=== PATIENT | male | born 1985 ===

== ENCOUNTER 2023-11-03 10:26 | Outpatient (AMB) | payer OTHER, SELFPAY ==
--- NOTE | 2023-11-03 10:34 | A.OFFVIS_ITS ---
Vital Signs 11/03/23 10:35 Height 5 ft 7 in Weight 236 lb 15.951 oz BMI 37.1 BP 104/72 Blood Pressure Location Lt brachial Position Sitting Pulse 97 Pulse Source Pulse Oximeter Pulse Oximetry (%) 96 Oxygen Delivery Method Room Air Intake Visit Reasons: sleep apnea Intake Note: pt is here as a new patient for follow up of sleep study and he is tired throughout the day, snores very loud, gasping and choking Oyster Opener Required: No Allergies No Known Allergies [No Known Allergies*] Allergy (Unverified 11/03/23 10:55) Medication List - Last Reconciled 11/03/23 by Naheed Hardy MD melatonin 5 mg PO BEDTIME PRN prazosin 5 mg PO BEDTIME quetiapine (Seroquel) 300 mg PO BEDTIME Do you need a note to return to daycare/school/sports/work: No HPI HPI sleep apnea: Details: THIS 37 YEARS OLD GENTLEMAN, IS BEING SEEN FOR THE 1ST TIME FOR MANAGEMENT OF HIS SLEEP APNEA. HE IS A CASE OF SEVERE OBESITY, WEIGHING ABOUT 40 KG/M. NOW LOST SOME WEIGHT IN THE PAST 10 WEEKS. LIVES IN A [facility] HOUSE IN THE RECOVERY PROGRAM , BECAUSE OF HIS PREVIOUS PROBLEM OF BEHAVIOR DISORDER. HE IS FROM HIS WITH 2 CHILDREN. IN THE [facility] HOUSE HE HAS BEEN TOLD THAT HE SNORES VERY HEAVY, AND HE CAN NOT HAVE ANY OTHER ROOMMATES SLEEP IN THE SAME ROOM. HE WAKES UP FREQUENTLY. HE HAS UN- REFRESHING SLEEP, AND FEELS TIRED/SLEEPY DURING THE DAYTIME. HE DENIES ANY OTHER PHYSICAL AILMENTS EXCEPT FOR HIS PSYCHIATRIC PROBLEM, FOR WHICH HE TAKES MEDS SHOWN IN THE MED LIST. HE CLAIMS THAT IT IS DUE TO HIS MEDS THAT HE HAD PUT ON LOT OF WEIGHT. HE UNDERWENT A HOME-BASED SLEEP STUDY ABOUT 2 MONTHS AGO, ORDERED BY SLEEP MEDICINE SERVICES, THE STUDY WAS GROSSLY ABNORMAL SHOWING A RATHER SEVERE DEGREE OF OBSTRUCTIVE SLEEP APNEA. WITH NUMBER OF O2 DESATURATIONS AND O2 SARAI 66%. O2 SAT WAS BELOW 88% FOR 17 MINUTES. PATIENT HAS BEEN SCHEDULED FOR AN IN-LAB STUDY FOR CPAP TITRATION. HOWEVER HE HAD REQUESTED AN URGENT VISIT TO OUR OFFICE FOR THE MANAGEMENT OF SLEEP APNEA. HE IS NOT ABLE TO SLEEP AT NIGHT. HE COMES WITH AN URGENT REQUEST THAT WE SHOULD PUT HIM ON A CPAP THERAPY. [facility] Medical History (Updated 11/03/23 @ 11:16 by Naheed Hardy MD) Nocturnal hypoxemia GIGI (obstructive sleep apnea) Obesity (BMI 35.0-39.9 without comorbidity) Social History Patient Tobacco Use Status: Current everyday Tobacco user Cigarette Packs Per Day: 0.5 Cigarettes Per Day: 3 Review of Systems Const All systems reviewed & are unremarkable except as noted in HPI and below Reports snoring (VERY LOUD ) Eyes Reports no additional complaints ENT Reports no additional complaints Card Denies chest pain at rest, Denies syncope, Denies irregular heart rhythm and Denies leg edema Resp Reports snoring (VERY LOUD ) and Denies wheezing GI Reports no additional complaints Reports no additional complaints Musc Reports no additional complaints Skin/Breast Reports system reviewed and no additional complaints, except as documented Neuro Reports no additional complaints and Denies syncope Psych Reports as per HPI Endo Reports no additional complaints Matthew/Lymph Reports no additional complaints Aller/Immun Denies wheezing Physical Exam Vital Signs: Last Vital Signs Pulse 97 11/03/23 10:35 BP 104/72 11/03/23 10:35 Pulse Ox 96 11/03/23 10:35 Oxygen Delivery Method Room Air 11/03/23 10:35 BMI result Body Mass Index 37.1 Const General: healthy appearing (EXCEPT FOR BEING OVERWEIGHT), comfortable, no acute distress, alert and awake Orientation/consciousness: patient oriented x3 HEENT Head: Yes normal to inspection General nose exam: No nasal polyps present and No nasal discharge present Face and sinus: Yes sinuses nontender Mouth: oropharynx abnormals (TONGUE IS CONVEX, OROPHARYNX MODERATELY CROWDED, MALLAMPATI CLASS 3) Throat: Yes posterior oropharynx normal Eyes General: appearance normal, both eyes and all related structures Neck Neck: Yes normal visual inspection, Yes no lymphadenopathy, Yes trachea midline, Yes no JVD and Yes other (NECK CIRCUMFERENCE 17 IN) Thyroid: Thyroid normal Chest Chest palpation & inspection: normal inspection of the chest, normal palpation of entire chest wall and no tenderness Resp Effort & Inspection: normal respiratory effort Auscultation: clear to auscultation bilaterally, no crackles and no wheezes Cardio Palpation: normal PMI Rate: regular rate Rhythm: regular rhythm Heart sounds: no gallops and no murmurs Peripheral pulses: Peripheral pulses 2+ throughout GI Palpation (GI): Soft to palpation, nontender, No hepatosplenomegaly present and no masses Auscultation: normal bowel sounds Back/Spine/Pelvis Thoracic/Lumbar Spine: thoracic and lumbar spine normal to inspection Skin General skin exam: no rashes or lesions noted Neuro General: patient oriented x3 and no focal motor deficits Cranial nerves: Yes CN's II-XII intact bilaterally Extrem General: Yes normal to inspection, Yes no clubbing, cyanosis or edema and Yes no calf tenderness Psych Appearance: grossly normal and well kempt Speech and movement: Normal speech and movement present Results Reviewed Results Reviewed: HOME-BASED SLEEP STUDY PERFORMED ON 08/1923 IS REVIEWED. TOTAL SLEEP TIME AHI 26, MUCH WORSE IN SUPINE POSITION SUPINE AHI 35. O2 SARAI 66 AND O2 SAT BELOW 88% FOR 1 HOUR 16 MINUTES Assessment & Plan Assessment & Plan (1) Obesity (BMI 35.0-39.9 without comorbidity): Comment: HERE GROSSLY OVERWEIGHT,. HE SAY IS IT IS DUE TO HIS PSYCH MEDS WHICH IS POSSIBLE. CURRENTLY HE IS TRYING TO CONTROL HIS DIET AND SAY IS HE IS STARTING TO LOSE WEIGHT SLOWLY. Code(s): E66.9 - Obesity, unspecified Category: Medical Plan: DISCUSSED WITH HIM ABOUT THE WEIGHT ISSUE. HE NEEDS TO CUT DOWN THE CALORIES INTAKE, HE NEEDS TO START WALKING AROUND ON A DAILY BASIS. (2) GIGI (obstructive sleep apnea): Comment: HE DOES HAVE RELATIVELY SEVERE OBSTRUCTIVE SLEEP APNEA WITH NOCTURNAL HYPOXEMIA. EXPLAINED TO HIM THE FINDINGS OF HIS SLEEP STUDY HE UNDERSTANDS WELL. HE CLAIMS TO BE VERY SYMPTOMATIC AND WANTS TO BE STARTED ON THERAPY SOON POSSIBLE. Code(s): G47.33 - Obstructive sleep apnea (adult) (pediatric) Category: Medical Plan: BECAUSE OF THE URGENCY TO START HIM ON DEFINITE IT TREATMENT, I WOULD GO AHEAD AND ORDER CPAP THERAPY WITH AUTO PAP MODE AND PRESSURE SETTING OF 6-20 CM, WITH A FULLFACE MASK. ONCE HE STARTS USING THE CPAP REGULARLY WILL CHECK HIS O2 SAT AT NIGHT BY OXIMETRY RECORDING., AND IF IT IS STILL LOW THEN HE WILL BE STARTED ON O2 SUPPLEMENTATION. MOST LIKELY HE IS GOING TO HEAL MUCH BETTER AND NOCTURNAL HYPOXEMIA SHOULD BE WELL CONTROLLED WITH THE USE OF CPAP. BECAUSE OF HIS PSYCH PROBLEMS AND LIVING IN [facility], HE NEEDS A VERY CLOSE FOLLOW-UP FOR MONITORING HIS COMPLIANCE AND BENEFITS. I WOULD SEE HIM BACK IN 6 WEEKS. WE HAVE MADE SURE TO GIVE HIM OUR TELEPHONE NUMBER AND WE HAVE ALSO GOTTEN HIS CELLPHONE TO BE ABLE TO CONTACT HIM FOR CONTINUOUS MONITORING. (3) Nocturnal hypoxemia: Comment: NOTED ABOVE UNDER GIGI HE DOES HAVE NOCTURNAL HYPOXEMIA. Code(s): G47.34 - Idiopathic sleep related nonobstructive alveolar hypoventilation Category: Medical Plan: IT IS HOPED THAT WITH THE USE OF CPAP NOCTURNAL HYPOXEMIA WILL RESOLVE COMPLETELY, AND NOTED ABOVE WE WILL DO AN OXIMETRY RECORDING AT NIGHT WHEN HE IS USING CPAP REGULARLY. Coding Level of Care Code Tele New Pt Level 4 (39687) Diagnoses Obesity (BMI 35.0-39.9 without comorbidity) E66.9 GIGI (obstructive sleep apnea) G47.33 Nocturnal hypoxemia G47.34
[2023-11-03 10:35] VITALS: BP 104/72; PULSE 97; O2SAT 96; BMI 37.1
== END 2023-11-03 10:58 | disposition home or self-care (01) ==
PROVIDERS: PCP Student in an Organized Health Care Education/Training Program; Visit Provider Internal Medicine
DX: E66.9 Obesity, unspecified (principal); G47.33 Obstructive sleep apnea (adult) (pediatric); G47.34 Idiopathic sleep related nonobstructive alveolar hypoventilation
CPT/HCPCS: 99204

== ENCOUNTER → 2023-11-03 10:26 | Outpatient (BNVA) | payer OTHER, SELFPAY | PROVIDERS: PCP Student in an Organized Health Care Education/Training Program; Visit Provider Internal Medicine ==

== ENCOUNTER 2025-02-28 20:02 | Emergency (ER) | payer SELFPAY ==
[2025-02-28 20:16] VITALS: BP 142/82; PULSE 102; O2SAT 99
--- NOTE | 2025-02-28 20:19 | ECG_ITS ---
Test Reason : n/v Blood Pressure : */* mmHG Vent. Rate : 66 BPM Atrial Rate : 66 BPM P-R Int : 172 ms QRS Dur : 104 ms QT Int : 398 ms P-R-T Axes : 32 7 6 degrees QTcB Int : 417 ms Normal sinus rhythm Normal ECG When compared with ECG of 02-Jan-2015 11:33, No significant change was found Referred By: Addie Pierce Electronically Signed By: ZEINA REN MD
--- NOTE | 2025-02-28 20:20 | ED_ITS ---
HPI - Abdominal Pain General Chief Complaint: Nausea/Vomiting/Diarrhea Stated Complaint: VOMITING DIZZY Time Seen by Provider: 02/28/25 20:14 History of Present Illness ED Provider: Addie Pierce NP HPI narrative: 39-year old male history of nocturnal hypoxemia, GIGI presents to the ED with chief complaint of severe nausea and vomiting that began acutely after taking pre workout when going to the gym. Patient reports he did take marijuana, he never has had cannabis hyperemesis previously due to marijuana use. However, he used paperwork at the gym and was performing his workup when he could not stop vomiting very acutely. There was no associated abdominal pain. No fever, chills. No chest pain or pressure, shortness of breath. No recent illnesses. No abdominal trauma. Related Data Home Medications ?Medication ?Instructions ?Recorded ?Confirmed melatonin 5 mg tablet 5 mg PO BEDTIME PRN 11/03/23 11/03/23 prazosin 5 mg capsule 5 mg PO BEDTIME 11/03/23 quetiapine 300 mg tablet (Seroquel) 300 mg PO BEDTIME 11/03/23 11/03/23 Allergies Allergy/AdvReac Type Severity Reaction Status Date / Time No Known Allergies (No Known Allergy Verified 02/28/25 20:31 Allergies*) Review of Systems Review of Systems ROS is otherwise negative unless mentioned in HPI. [facility] Past Medical History Medical History (Updated 02/28/25 @ 23:13 by Addie Pierce [facility]) Nocturnal hypoxemia GIGI (obstructive sleep apnea) Obesity (BMI 35.0-39.9 without comorbidity) Social History Social History Patient Tobacco Use Status: Current everyday Tobacco user Cigarette Packs Per Day: 0.5 Cigarettes Per Day: 3 Advance Directives: No Advance Directives Information Provided: No Physical Exam ED Exam Exam: Nursing notes and vital signs reviewed. Constitutional: Well-appearing, NAD. Alert. Oriented X3. Eyes: EOMI. ENT: Pharynx normal. Neck: Normal inspection. Neck supple. CVS: Normal heart rate and rhythm. Pulses normal. Respiratory: No respiratory distress. Breath sounds normal. Abdomen: Soft, nontender, nondistended. Skin: Skin warm and dry. Normal skin color. Extremities: No lower extremity edema. Neuro: Oriented X 3. No motor deficit. Vital Signs: Vital Signs - 24 hr 02/28/25 20:29 02/28/25 22:00 Temperature 97.7 F 98.3 F Pulse Rate 68 58 Respiratory Rate 16 14 Blood Pressure 122/81 138/71 Pulse Oximetry 99 95 Oxygen Delivery Method Room Air Room Air BMI result Body Mass Index 32.1 Medical Decision Making Medical Decision Making [facility] Narrative: 8:23 PM 02/28/2025 (Addie Pierce, JAKE): Upon my assessment, the patient overall appears well, but uncomfortable. He arrives via EMS and was retching into an emesis bag, he is now spitting up his own secretions. He tells me he took a new pre workup that he bought today, and had acute onset nausea and vomiting. His abdominal exam is benign. Plan to administer droperidol, Toradol, fluid bolus and reassess. Low clinical suspicion for intra-abdominal pathology given the acute onset after pre workout and marijuana use. 11:05 PM: His lab work is reassuring. Mild leukocytosis, likely due to nausea and vomiting/stress. 12.1. H/H elevated likely in the setting of dehydration. His creatinine is also elevated at 1.42. No history of kidney disease. Of use given 2 L IV fluid while in the ED. He is not tolerating PO. I did consider and offer admission for IV fluids and hydration on setting of severe nausea and vomiting but the patient has declined. LFTs were also mildly elevated, he declines alcohol use. I have recommend he get this checked outpatient. His lipase level was 143. I have concerned acute pancreatitis, and considered performing CT imaging of the abdomen, pelvis but the patient adamantly declines. He has a benign abdominal exam, though this differential can not be excluded. He tells me his anxiety is very high, he wants to leave the hospital, he does not want any additional testing done in the ED. I stressed the importance of returning if symptoms do not improve over the next 24 hours. He has remained vitally stable while in the ED. He is able to tolerate p.o.. Again, admission was recommended however he has declined. Given extensive return precautions to the ED. Differential Diagnosis Differential Diagnoses: The differential diagnosis associated with the presentation includes Marijuana use, cannabis hyperemesis, gastritis Admission/Observation Consideration of admission/observation: Escalation of care including admission/observation considered Lab Data [facility] Lab Attestation statement: I reviewed the patient's lab results. (Elevated lipase level, mild leukocytosis) 02/28/25 20:44 02/28/25 20:44 Labs: Lab Results 02/28/25 Range/Units 20:44 WBC 12.1 H (4.8-10.8) X10*3/uL RBC 6.09 H (4.60-5.80) X10*6/uL Hgb 18.7 H (14.0-18.0) g/dl Hct 52.7 H (42.0-52.0) % MCV 86.5 (80.0-98.0) fL MCH 30.7 (27.0-33.0) pg MCHC 35.5 (31.0-36.0) g/dl RDW 11.1 (11.0-16.0) % Plt Count 267 (160-400) X10*3/uL MPV 9.3 L (9.4-12.4) fL Immature Gran % (Auto) 0.2 (0.0-0.4) % Neut % (Auto) 81.3 H (45-73) % Lymph % (Auto) 13.1 L (20-40) % [place] % (Auto) 4.2 (2-11) % Eos % (Auto) 0.7 (0-4) % Baso % (Auto) 0.5 (0-2) % Lymph # (Auto) 1.6 (1.2-4.9) X10*3/uL [place] # (Auto) 0.5 (0.1-1.2) X10*3/uL Eos # (Auto) 0.1 (0.0-0.4) X10*3/uL Baso # (Auto) 0.1 (0.0-0.2) X10*3/uL Abs Immat Gran (auto) 0.02 (0.00-0.03) X10*3/uL Absolute Neuts (auto) 9.9 H (2.0-8.3) x10*3/uL Absolute Nucleated RBC 0.000 (0.0-0.012) X10*3/uL Nucleated RBC % (auto) 0.0 (0.0-0.2) /100WBC Sodium 140 (135-145) mmol/L Potassium 3.8 (3.3-5.1) mmol/L Chloride 106 (96-108) mmol/L Carbon Dioxide 21 L (22-29) mmol/L Anion Gap 17 (12-20) BUN 24 H (9-16) mg/dL Creatinine 1.42 H (0.5-1.4) mg/dL Estim Creat Clear Calc 76.6 Estimated GFR 56 Random Glucose 114 (60-115) mg/dL Calcium 10.9 H (8.4-10.2) mg/dL Total Bilirubin 1.3 H (0.0-1.0) mg/dL AST 54 H (5-37) U/L ALT 47 H (0-40) U/L Alkaline Phosphatase 81 (39-117) U/L Total Protein 8.5 H (6.5-8.0) g/dL Albumin 5.4 H (3.5-5.0) g/dL Lipase 143 H (8-78) U/L Ethyl Alcohol < 10 mg/dL Independent Interpretation I performed an independent interpretation of an: EKG Interpretation: Rate: 66 Rhythm: NSR Kell: 32/7/6 Normal P waves. Normal LIZA. Normal QRS complex. ST T wave : no dep, elev qTC: 417 prior studies:similar The study has been interpreted contemporaneously by me. Independent Historian Clinical information obtained from an independent historian. History obtained from or confirmed by: Spouse and EMS External Record Review External record reviewed: Outpatient record Chronic Conditions Patient?s care impacted by: Other (GIGI) Social Determinants Patient?s care significantly limited by Social Determinants of Health including: Problems related to primary support group Medications Administered Discontinued Medications Generic Name Dose Route Start Last Admin Trade Name Freq PRN Reason Stop Dose Admin Droperidol 1.25 mg 02/28/25 20:19 02/28/25 20:47 Droperidol 5 Mg/2 Ml Vial IM 02/28/25 20:20 1.25 mg ONCE ONE Administration Sodium Chloride 1,000 mls @ 999 mls/hr 02/28/25 20:19 02/28/25 20:46 Ns IV 02/28/25 21:19 999 mls/hr .Q1H1M ONE Administration Sodium Chloride 1,000 mls @ 999 mls/hr 02/28/25 21:36 02/28/25 22:49 Ns IV 02/28/25 22:36 999 mls/hr .Q1H1M ONE Administration Ketorolac Tromethamine 15 mg 02/28/25 20:19 02/28/25 20:46 Ketorolac Tromethamine 15 Mg/Ml Vial IVPUSH 02/28/25 20:20 15 mg ONCE ONE Administration Discharge Plan Discharge Clinical Impression: Nausea & vomiting Qualifiers: Vomiting type: unspecified Qualified Code(s): R11.2 - Nausea with vomiting, unspecified Patient Disposition: Home, Self-Care Instructions: Acute Nausea and Vomiting (DC) Additional Instructions: As we discussed, your workup here is overall reassuring. However, your lipase level is elevated began concerning for underlying pancreatitis, inflammation of the pancreas. However, you were able to eat and drink after antinausea medications. We also discussed how your creatinine level was elevated, concerning for dehydration. Your liver function tests were also mildly high. It is very important that you follow up with your primary care provider within the next 1-3 days, and I repeat lab work done. Please engage in adequate oral hydration. If symptoms do not improve over the next 24-48 hours, please return back to the ED for additional assessment, including possible imaging and further management. As we also discussed, please do not use the pre-workout that seems to have caused some nausea/vomiting today. Prescriptions: No Action quetiapine [Seroquel] 300 mg tablet 300 mg PO BEDTIME prazosin 5 mg capsule 5 mg PO BEDTIME melatonin 5 mg tablet 5 mg PO BEDTIME PRN Referrals: Matthew Martin MD [Primary Care Provider, Interventional Radiology] [facility] [Provider Group, Gastroenterology] Print Language: Belizean
[2025-02-28 20:29] VITALS: BP 122/81; PULSE 68; RESP 16; TEMP 36.5; O2SAT 99; BMI 32.1
[2025-02-28 20:48] LABS: MANUAL DIFF FLAG NO
[2025-02-28 20:57] LABS: Hematocrit 52.7 % (42.0-52.0); Hemoglobin 18.7 g/dl (14.0-18.0); Imm Gran Abs Auto 0.02 X10*3/uL (0.00-0.03); Imm Gran Pct Auto 0.2 % (0.0-0.4); Lymphocytes Absolute Auto 1.6 X10*3/uL (1.2-4.9); Mean Corpuscular HGB Conc 35.5 g/dl (31.0-36.0); Mean Corpuscular Hemoglobin 30.7 pg (27.0-33.0); Mean Corpuscular Volume 86.5 fL (80.0-98.0); NRBC Abs Auto 0.000 X10*3/uL (0.0-0.012); NRBC Pct Auto 0.0 /100WBC (0.0-0.2); Platelet Count 267 X10*3/uL (160-400); Red Blood Count 6.09 X10*6/uL (4.60-5.80); White Blood Count 12.1 X10*3/uL (4.8-10.8)
[2025-02-28 21:06] LABS: Alanine Aminotransferase 47 U/L (0-40); Albumin Level 5.4 g/dL (3.5-5.0); Alkaline Phosphatase 81 U/L (39-117); Anion Gap 17 (12-20); Aspartate Amino Transferase 54 U/L (5-37); Blood Urea Nitrogen 24 mg/dL (9-16); Calcium 10.9 mg/dL (8.4-10.2); Carbon Dioxide 21 mmol/L (22-29); Chloride 106 mmol/L (96-108); Creatinine Clr Calc Pharmacy 76.6; Estimated Glomerular Filt Rate 56; Lipase 143 U/L (8-78); Potassium 3.8 mmol/L (3.3-5.1); Sodium 140 mmol/L (135-145); Total Protein 8.5 g/dL (6.5-8.0)
[2025-02-28 22:00] VITALS: BP 138/71; PULSE 58; RESP 14; TEMP 36.8; O2SAT 95
--- OUTSIDE RECORDS SUMMARY | 2025-02-28 23:40 | XMS_ITS | Clinical Summary ---
Author Organization [employer] [facility] ity Address [address] [place] [address] Care Team Providers Care Hoop Puncher Name Role Phone Herrera Cohen MD Primary Care Provider [phone] Medical History Medical History Date Comments Asthma DX:Asthma Depressive disorder DX:Depressiv e disorder Anxiety state DX:Anxiety state Family History Medical History Relation Name Comments Schizophrenia Brother Other: irregular heart beat Daughter Diabetes Father Other: addiction Father Other: open heart surgeries Maternal Grandmother Bipolar disorder Mother Other: heart murmur Mother Schizophrenia Mother Relation Name Status Comments Brother Alive Daughter Alive Father Alive Maternal Grandmother Alive Mother Alive Social History Tobacco Use Types Packs/Day Years Used Date Smoking Tobacco: Every Day Smokeless Tobacco: Never Alcohol Use Standard Drinks/Week Comments Never 0 (1 standard drink = 0.6 oz pur e alcohol) Sex and Gender Information Value Date Recorded Sex Assigned at Not on file Legal Sex Male 3:41 PM EST Gender Identity Not on file Sexual Orientation Not on file Last Filed Vital Signs Vital Sign Reading Time Taken Comments Blood Pressure 140/87 08/31/2023 2:15 PM EDT Pulse 101 08/31/2023 2:15 PM EDT Temperature - - Respiratory Rate - - Oxygen Saturation - - Inhaled Oxygen Concentration - - Weight 113 kg (249 lb 6.4 oz) 08/31/2023 2:15 PM EDT Height 170.2 cm (5' 7 ) 08/31/2023 2:15 PM EDT Body Mass Index 39.06 08/31/2023 2:15 PM EDT Plan of Treatment Health Maintenance Due Date Last Done Comments DTaP,Tdap,and Td Vaccines (1 - Tdap) 2005 Hepatitis B Vaccines (1 of 3 - 19+ 3-dose series) 2005 Pneumococcal Vaccine: Pediat rics (0 to 5 Years) and At-Risk Patients (6 to 49 Years) (1 of 2 - PCV) 2005 HPV Vaccines (1 - 3-dose SCD M series) 2013 Cholesterol Screening (Lipid Panel) 02/17/2022 HIV Screening 02/17/2022 Hepatitis C Screening 02/17/2022 Social Influencers of Health Screening 02/17/2022 Depression Screening 03/21/2024 COVID-19 Vaccine (1 - 2024-2 6 season) 2024 Influenza Vaccine (#1) 2024 RSV Immunization Adult Patie nts (1 - 1-dose 75+ series) 2061 HIB Vaccines Aged Out No longer eligi ble based on patient's age to complete this topic Hepatitis A Vaccines Aged Out No long er eligible based on patient's age to complete this topic IPV Vaccines Aged Out No longer eligi ble based on patient's age to complete this topic MMR Vaccines Aged Out No longer eligi ble based on patient's age to complete this topic Meningococcal ACWY Vaccine Aged Out N o longer eligible based on patient's age to complete this topic Meningococcal B Vaccine Aged Out No l onger eligible based on patient's age to complete this topic RSV Immunization Patients Un liana 20 months Aged Out No longer eligible b ased on patient's age to complete this topic Varicella Vaccines Aged Out No longer eligible based on patient's age to complete this topic Care Teams Hoop Puncher Relationship Specialty Start Date End Date Herrera Cohen MD [address] [place] [id number] PCP - General 04/13/23
[2025-02-28 23:46] VITALS: BP 138/71; PULSE 58; RESP 14; TEMP 36.8; O2SAT 95
== END 2025-02-28 23:46 | disposition home or self-care (01) ==
PROVIDERS: Nurse Practitioner; Emergency Provider Emergency Medicine; PCP Radiology Vascular & Interventional Radiology
DX: R11.2 Nausea with vomiting, unspecified (principal); R42 Dizziness and giddiness; F12.90 Cannabis use, unspecified, uncomplicated; F17.210 Nicotine dependence, cigarettes, uncomplicated; Z79.899 Other long term (current) drug therapy; Z51.81 Encounter for therapeutic drug level monitoring
CPT/HCPCS: 36415; 80053; 80307; 83690; 85025; 93005; 96372; 96374; 99284; J1790; J1885

== ENCOUNTER → 2025-02-28 20:19 | Outpatient (BNV) | payer SELFPAY | PROVIDERS: Emergency Provider Emergency Medicine; PCP Radiology Vascular & Interventional Radiology; Visit Provider Internal Medicine Cardiovascular Disease | DX: R11.2 Nausea with vomiting, unspecified (principal) | CPT/HCPCS: 93010 ==